=== PATIENT | female | born 1975 | race African-American/Black ===

== ENCOUNTER 2016-10-10 11:20 | Emergency (ER) | payer MEDICARE, MEDICAID ==
[2016-10-10 11:37] VITALS: BMI 27.4
--- NOTE | 2016-10-10 11:53 | EDPRACDOC ---
- General Information Chief Complaint: Female Urogenital Problems Stated Complaint: BACK & SIDE PAIN RECENT UTI Time Seen by Provider: 10/10/16 11:46 Mode Of Arrival: Car Home Medications: Home Medications Methylphenidate HCl [Ritalin] 20 mg PO BID 01/06/16 Valacyclovir HCl [Valtrex] 1,000 mg PO DAILY 01/06/16 Zolpidem Tartrate [Ambien] 10 mg PO HS PRN 01/06/16 Alprazolam [Xanax] 0.25 mg PO DAILY PRN 09/09/16 Ergocalciferol (Vitamin D2) [Vitamin D] 50,000 units PO WEEKLY 10/10/16 Fluoxetine HCl 20 mg PO DAILY 10/10/16 Meloxicam [Mobic] 15 mg PO DAILY 10/10/16 Phenazopyridine HCl [Pyridium] 200 mg PO TID #6 tablet 10/10/16 Trazodone HCl 150 mg PO HS 10/10/16 Allergies/Adverse Reactions: Allergies Allergy/AdvReac Type Severity Reaction Status Date / Time amoxicillin Allergy Unknown Verified 10/10/16 12:09 - History of Present Illness Medications/Treatment PRODUCTION CONSULTANT Treated With Medication PRODUCTION CONSULTANT YES Medications PRODUCTION CONSULTANT (Medication/ tramadol 0830 Dose/Time) HPI: PT COMPLAINS OF RECURRENT UTI SYMPTOMS, STATES PAIN WITH URINATION, FREQUENCY AND URGENCY, HAS HAD "LOW GRADE TEMP", NAUSEA, NO VOMITING. PT SEEN IN ED ONE MONTH AGO, TREATED WITH CIPRO, STATES THAT SHE HAS SEEN HER PCP SINCE THAT VISIT AND HAS BEEN ON ABX X 3, STATES HAS BEEN OFF ABX NOW FOR 1 WEEK AND SYMPTOMS HAVE RETURNED, HAS NOT SEEN UROLOGIST. Onset: 2 weeks Urinary Pain Location: Reports: Abdomen, Left Flank Symptom Onset: Reports: Sudden Pain Severity: Moderate Pain Quality: Reports: Burning History of: Reports: UTI : No Oral Intake: Normal Urinary Output: Normal Associated Signs and Symptoms: Reports: Fever, Abdominal Pain, Back Pain, Flank Pain, Nausea. Denies: Vomiting, Vaginal Discharge, Vaginal Bleeding, Vaginal Itching - Treatment Prior to ED Arrival Reported Medications/Treatment PRODUCTION CONSULTANT Treated With Medication PRODUCTION CONSULTANT YES Medications PRODUCTION CONSULTANT (Medication/ tramadol 0830 Dose/Time) ED Past Medical History - History Reviewed Yes Nurses notes reviewed and agree except as marked - Patient Medical History Neurological History: Denies: Seizures, Migraine Cardiac History: Denies: Hypertension Respiratory History: Denies: Asthma, COPD GI/ History: Reports: Urinary Tract Infection Psychological History: Reports: Anxiety, Bipolar Disorder. Denies: Depression Systemic History: Reports: Cancer (cervical) Surgical History: Reports: Other (Oral surgery 03/24/13) - Family Medical History Reports: Hypertension, Diabetes, Cancer - Social Medical History Smoking Status: Heavy tobacco smoker (5 or more cigarettes/day or daily pipe/ cigar) ETOH: None Substance Abuse: None EDM Review of Systems - Review of Systems Constitutional: Chills, Fever Eyes: negative: Blurred Vision, Double Vision Ears: negative: Drainage Throat: negative: Pain Nose: negative: Congestion, Discharge Respiratory: negative: Cough, Shortness of Breath, Wheezing Cardiovascular: negative: Chest Pain, Palpitations Gastrointestinal: Nausea, Pain. negative: Diarrhea, Vomiting Genitourinary: Dysuria, Frequency, Urgency to urinate. negative: Vaginal Discharge, Vaginal Bleeding Neurological: negative: Dizziness, Headache, Numbness, Weakness Musculoskeletal: No Symptoms Reported Integumentary: No Symptoms Reported - Physical Exam Constitutional: Alert (Awake), No apparent distress Oriented to: Time, Person, Place Last recorded Vital Signs: Last Vital Signs Temp 99.1 F 10/10/16 11:32 Pulse 109 10/10/16 11:32 Resp 18 10/10/16 11:32 BP 123/65 10/10/16 11:32 Pulse Ox 98 10/10/16 11:32 Oxygen Pulse Oxygen Saturation 98 O2 Device Room Air Oxygen Flow Rate Fraction of Inspired Oxygen ( FIO2) - HEENT Head: Normal ( normocephalic) Eye Exam: Normal (PERRL, EOMI, Sclera white) Oropharynx: Normal (Pharynx:Moist without exudate,Gums-no swelling) Tympanic Membrane: Normal ENT EAC: Normal TMJ: Normal Nose: No Symptoms Reported (septum midline) Neck: Normal (FROM, trachea at midline) - Respiratory/Cardiovascular Respiratory: Normal - CTA (BBS clear to auscultation without adventitious sounds ) Cardiovascular: Normal (RRR without murmur, gallop or rub) - GI Auscultation: Normal (NABS) Palpation: Normal (Soft,No rebound or guarding, non distended) Tenderness: Mild, LLQ, Suprapubic. negative: Guarding, Rebound, Rigidity Mancera's Sign: Negative - Musculoskeletal Back: CVA Tenderness (MILD, LEFT) Extremities: Normal (Normal tone, Pulses 2+ No cyanosis or edema, FROM) - Integumentary Skin: Normal, Warm, Dry Lymphatics: Normal (no adenopathy) - Neurologic Memory Impaired: Normal Motor Function: Normal (Normal tone, Pulses 2+ No cyanosis or edema, FROM) Cranial Nerve: Normal (CN II-X11 intact sensation, strength 5/5) Cerebellar: Normal Mood Description: Normal Perception: Normal - Differential Diagnosis Pyelonephritis, Urolithiasis, UTI - Results 10/10/16 12:09 10/10/16 12:09 10/10/16 13:57 Laboratory Results - last 24 hr 10/10/16 10/10/16 10/10/16 11:38 11:38 12:09 WBC 3.5 L RBC 4.15 L Hgb 11.9 L Hct 36.4 MCV 88 MCH 28.8 MCHC 32.8 L RDW 14.0 Plt Count 219 MPV 7.2 L Neut % (Auto) 66.1 Lymph % (Auto) 25.7 [place] % (Auto) 7.4 Eos % (Auto) 0.2 Baso % (Auto) 0.6 Absolute Neuts (auto) 2.31 Absolute Lymphs (auto) 0.88 Sodium Potassium Chloride Carbon Dioxide Anion Gap BUN Creatinine Estimated GFR (MDRD) Glucose Calculated Osmolality Calcium Total Bilirubin AST ALT Alkaline Phosphatase Total Protein Albumin Urine Color Yellow Urine Clarity Clear Urine pH 6.0 Ur Specific [place] 1.025 Urine Protein Neg Urine Glucose (UA) Neg Urine Ketones Neg Urine Occult Blood 2+ H Urine Nitrite Neg Urine Bilirubin Neg Urine Urobilinogen <2.0 Ur Leukocyte Esterase Neg Urine RBC 5-10 H Urine WBC 0-2 Ur Epithelial Cells 2+ Urine Bacteria Few Urine Mucus Sm amt Urine Test Neg 10/10/16 12:09 WBC RBC Hgb Hct MCV MCH MCHC RDW Plt Count MPV Neut % (Auto) Lymph % (Auto) [place] % (Auto) Eos % (Auto) Baso % (Auto) Absolute Neuts (auto) Absolute Lymphs (auto) Sodium 136 L Potassium 3.5 Chloride 104 Carbon Dioxide 25 Anion Gap 11 BUN 13 Creatinine 0.70 Estimated GFR (MDRD) > 60 Glucose 93 Calculated Osmolality 262 L Calcium 8.7 Total Bilirubin 0.5 AST 21 ALT 29 Alkaline Phosphatase 71 Total Protein 7.5 Albumin 4.3 Urine Color Urine Clarity Urine pH Ur Specific [place] Urine Protein Urine Glucose (UA) Urine Ketones Urine Occult Blood Urine Nitrite Urine Bilirubin Urine Urobilinogen Ur Leukocyte Esterase Urine RBC Urine WBC Ur Epithelial Cells Urine Bacteria Urine Mucus Urine Test - Additional Information OLD CHART REVIEWED, LAST VISIT A MONTH AGO DX WITH UTI, PRESCRIBED CIPRO, CX WAS PROTEUS SUSCEPTIBLE TO CIPRO. NO INDICATION OF UTI TODAY, NO CLEAR INDICATION FOR PT'S SYMPTOMS, URINE CULTURED AGAIN, WILL PROVIDE CONTACT INFORMATION FOR UROLOGY. Decision Time to Discharge: 13:58 - Departure Disposition: Home Condition: Stable Final Diagnosis: Dysuria Instructions: Dysuria (ED) Education/Counseling Given To: Patient Education/Counseling Given Regarding: Diagnosis, Treatment, Prognosis, Follow Up Referrals: Ronaldo Aden MD [Staff Physician] - One Week Prescriptions: Phenazopyridine HCl [Pyridium] 200 mg PO TID #6 tablet Additional Instructions: REST, DRINK PLENTY OF FLUIDS, CONTACT DR ADEN WEDNESDAY TO ARRANGE APPOINTMENT FOR FURTHER EVALUATION.
[2016-10-10] MEDS ORDERED: NS 1,000 ML IV ONE (11:54)
[2016-10-10] MEDS ORDERED: KETOROLAC TROMETH 30 MG/ML VIAL IV ONE (11:54)
[2016-10-10 12:00] LABS: LEUKOCYTES/URINE NEG (NEGATIVE); NITRITE/URINE NEG (NEGATIVE); URINE OCCULT BLOOD 2+ (NEG/TRACE); WBC/URINE 0-2 (0-5)
[2016-10-10 12:20] LABS: AUTOMATED BASOPHIL 0.6 % (0-2); AUTOMATED EOSINOPHIL 0.2 % (0-5); AUTOMATED LYMPH 25.7 % (17-44); AUTOMATED MONOCYTE 7.4 % (3-10); AUTOMATED NEUTROPHIL 66.1 % (45-76); MPV 7.2 fL (7.4-10.4)
[2016-10-10 12:32] LABS: BLOOD UREA NITROGEN 13 MG/DL (7-17); CALCIUM 8.7 MG/DL (8.4-10.2); CALCULATED OSMOLALITY 262 MOs/Kg (270-290); CHLORIDE 104 mEq/L (98-107); GLUCOSE 93 MG/DL (70-99); SODIUM LEVEL 136 mEq/L (137-146); TOTAL PROTEIN 7.5 G/DL (6.3-8.2)
[2016-10-10 13:44] VITALS: TEMP 98.5
--- NOTE | 2016-10-10 13:54 | DIRPT ---
CLINICAL DATA: Left flank pain x2 weeks, nausea, vomiting EXAM: CT ABDOMEN AND PELVIS WITHOUT CONTRAST TECHNIQUE: Multidetector CT imaging of the abdomen and pelvis was performed following the standard protocol without IV contrast. COMPARISON: Ultrasound 07/24/2015 and previous FINDINGS: Visualized lung bases clear. 16 mm probable cyst in hepatic segment 8, slightly enlarged since 04/16/2012. Smaller segment 5 cyst 5 mm suggesting gallbladder fossa, stable. No new hepatic lesion. Unremarkable spleen, adrenal glands, pancreas, kidneys. Unenhanced CT was performed per clinician order. Lack of IV contrast limits sensitivity and specificity, especially for evaluation of abdominal/pelvic solid viscera. Stomach, small bowel, colon nondilated. Appendix not identified. Prominent uterus measuring at least 12 x 10.2 cm. Bilateral pelvic phleboliths. Urinary bladder physiologically distended. No ascites. No free air. No adenopathy localized. Lumbar spine unremarkable. IMPRESSION: 1. No evidence of nephrolithiasis, appendicitis, or other acute abnormality. Electronically Signed By: Giancarlo Mg M.D. On: 10/10/2016 13:52
[2016-10-10 14:14] VITALS: BP 108/57; PULSE 77
== END 2016-10-10 14:18 | disposition home or self-care (01) ==
LOC: EDMC 11:20
DX: R30.0 Dysuria (principal); R10.9 Unspecified abdominal pain
CPT/HCPCS: 36415; 74176; 80053; 81001; 81025; 85025; 87086; 96361; 96374; 99283; J1885